=== PATIENT | male | born 1970 | race Caucasian/White ===

== ENCOUNTER 2017-11-23 08:40 | Day surgery (SDC) | payer BC ==
[~2017-11-23 08:40] MED LIST: LIDOCAINE 2% (SDV) 5 ML INJ
[2017-11-23] MEDS ORDERED: ACETAMINOPHEN 1000MG/100ML IV 100 ML (10:29)
[2017-11-23] MEDS ORDERED: ROCURONIUM 50 MG INJ (10:46)
[2017-11-23] MEDS ORDERED: CEFAZOLIN 1 GM INJ (10:46)
[2017-11-23] MEDS ORDERED: MIDAZOLAM 1 MG/ML 2 ML INJ (10:46)
[2017-11-23] MEDS ORDERED: PROPOFOL 20 ML (10:46)
[2017-11-23] MEDS ORDERED: LABETALOL HCL 20MG INJ (11:14)
[2017-11-23] MEDS ORDERED: HYDROCODONE/APAP (5/325) TAB PO ×2 (11:30)
[2017-11-23] MEDS: BUPIVACAINE 0.25%/EPI (SDV) 30 ML INJ (11:30)
[2017-11-23] MEDS: LIDOCAINE 1% (MPF) 30 ML INJ (11:30)
[2017-11-23] MEDS ORDERED: ROPIVACAINE 0.5 % 30 ML VIAL ×2 (11:35)
[2017-11-23] MEDS ORDERED: SUGAMMADEX SODIUM 200 MG/2 ML VIAL IV (11:37)
[2017-11-23] MEDS ORDERED: MEPERIDINE 25 MG INJ (12:07)
[2017-11-23] MEDS: MEPERIDINE 25 MG INJ IV (12:11)
[2017-11-23] MEDS ORDERED: OXYCODONE/ACETAMINOPHEN (5/325) TAB PO ×2 (12:30)
[2017-11-23] MEDS ORDERED: hydrALAzine 20 MG INJ IV (12:30)
[2017-11-23] MEDS ORDERED: METOCLOPRAMIDE 10 MG INJ IV (12:30)
[2017-11-23] MEDS ORDERED: MIDAZOLAM 1 MG/ML 2 ML INJ IV (12:30)
[2017-11-23] MEDS ORDERED: EPHEDrine SULFATE 50 MG/5 ML SYG IV (12:30)
[2017-11-23] MEDS ORDERED: HYDROmorphONE 1 MG/5 ML IV SYRINGE IV ×3 (12:30)
[2017-11-23] MEDS ORDERED: DIPHENHYDRAMINE 50 MG INJ IV (12:30)
[2017-11-23] MEDS ORDERED: LABETALOL HCL 20MG INJ IV (12:30)
[2017-11-23] MEDS ORDERED: ALBUTEROL 0.083% (NEB) 2.5 MG/3 ML AMP HHN (12:30)
[2017-11-23] MEDS ORDERED: FENTAnyl 50 MCG/ML VIAL IV ×3 (12:30)
[2017-11-23] MEDS: KETOROLAC 30 MG INJ IV (12:41)
[2017-11-23] MEDS: ONDANSETRON 4 MG INJ IV (12:41)
== END 2017-11-23 14:02 | disposition home or self-care (01) ==
LOC: SDS 08:40
DX: K43.9 Ventral hernia without obstruction or gangrene (principal)
CPT/HCPCS: 49652